=== PATIENT | female | born 1965 | race Two or more races ===

== ENCOUNTER → 2019-03-02 | Outpatient (CLI) | payer MEDICARE, MEDICAID ==
--- NOTE | 2019-03-02 08:37 | WOMENS IMAGING REPORT ---
EXAM DESCRIPTION: U/S ABDOMEN TOTAL COMPLETED DATE/TIME: 03/02/2019 8:10 am REASON FOR STUDY: R10.11 RIGHT UPPER QUADRANT PAIN R10.11 RIGHT UPPER QUADRANT PAIN COMPARISON: None. TECHNIQUE: Dynamic and static grayscale images acquired of the abdomen and recorded on PACS. Additio nal selected color Doppler and spectral images recorded. Note: Study does not meet criteria for complete doppler/duplex scan LIMITATIONS: None. FINDINGS: PANCREAS: Pancreas is obscured by overlying bowel gas. LIVER: The liver is echogenic consistent with fatty infiltration. No masses. LIVER VASCULATURE: Normal directional flow of the main portal vein and hepatic veins. GALLBLADDER: There is gallbladder sludge. No wall thickening or pericholecystic edema. ULTRASOUND-DETECTED MEIER'S SIGN: Negative. INTRAHEPATIC DUCTS AND COMMON DUCT: CBD and intrahepatic ducts normal caliber. No filling defects. INFERIOR VENA CAVA: Patent. AORTA: Obscured by overlying bowel gas. RIGHT KIDNEY: Normal size. Normal echogenicity. No solid or suspicious masses. No hydronephros is. No calcifications. LEFT KIDNEY: Normal size. Normal echogenicity. No solid or suspicious masses. No hydronephrosi s. No calcifications. SPLEEN: Normal size. No solid masses. PERITONEAL AND PLEURAL SPACES: No ascites or effusions. OTHER: No other significant finding. IMPRESSION: Limited study due to overlying bowel gas. Fatty infiltration of the liver. TECHNICAL DOCUMENTATION: JOB ID: [id number]- All Rights Reserved Reading location - IP/workstation name: [email or web address]
== END ==
LOC: WI 07:25
PROVIDERS: ATTEND Physician Assistant
DX: K76.0 Fatty (change of) liver, not elsewhere classified (principal); R10.11 Right upper quadrant pain
CPT/HCPCS: 76700

== ENCOUNTER 2019-03-08 15:21 | Emergency (ER) | payer MEDICARE, MEDICAID ==
[2019-03-08] MEDS ORDERED: DICYCLOMINE HCL 20 MG TABLET PO ONE (15:40)
--- NOTE | 2019-03-08 15:40 | ER Document Report ---
ED Medical Screen (RME) - General Chief Complaint: Abdominal Pain Stated Complaint: ABDOMINAL PAIN Time Seen by Provider: 03/08/19 15:32 Primary Care Provider: SOWMYA IRWIN PA-C [Primary Care Provider] - Follow up as needed Mode of Arrival: Ambulatory Information source: Patient Notes: This 52-year-old diabetic presents to the emergency department with right upper quad abdominal pain. Reports she had an ultrasound a week ago and they told her something about her gallbladder. She reports here today with increased pain. Reports she has been hurting all week. Review of last week's ultrasound report shows sludge in the fatty liver. Patient also reports that she has gained like 15 pounds even though she is working out. I have greeted and performed a rapid initial assessment of this patient. A comprehensive ED assessment and evaluation of the patient, analysis of test results and completion of the medical decision making process will be conducted by additional ED providers. Dictation of this chart was performed using voice recognition software; therefore, there may be some unintended grammatical errors. TRAVEL OUTSIDE OF THE [place] IN LAST 30 DAYS: No - Related Data Allergies/Adverse Reactions: Penicillins Allergy (Verified 03/08/19 15:32) Physical Exam - Vital signs Vitals: Temp Pulse Resp BP Pulse Ox 98.0 F 93 16 153/86 H 96 03/08/19 15:25 03/08/19 15:25 03/08/19 15:25 03/08/19 15:25 03/08/19 15:25 Course - Vital Signs Vital signs: Temp Pulse Resp BP Pulse Ox 98.0 F 93 16 153/86 H 96 03/08/19 15:25 03/08/19 15:25 03/08/19 15:25 03/08/19 15:25 03/08/19 15:25 Doctor's Discharge - Discharge Referrals: SOWMYA IRWIN PA-C [Primary Care Provider] - Follow up as needed
[2019-03-08 16:15] LABS: ABSOLUTE EOSINOPHILS # (AUTO) 0.5 10^3/uL (0.0-0.6); ABSOLUTE LYMPHOCYTES (AUTO) 1.8 10^3/uL (0.5-4.7); ABSOLUTE MONOCYTES (AUTO) 0.4 10^3/uL (0.1-1.4); ABSOLUTE NEUT (AUTO) 5.2 10^3/uL (1.7-8.2); BASOPHILS % (AUTO) 0.3 % (0-2); EOSINOPHILS % (AUTO) 5.8 % (0-6); HEMATOCRIT 40.9 % (36.0-47.0); HEMOGLOBIN 14.2 g/dL (12.0-15.5); LYMPHOCYTES % (AUTO) 22.6 % (13-45); MEAN CORPUSCULAR HEMOGLOBIN 30.6 pg (27.0-33.4); MEAN CORPUSCULAR HGB CONC 34.6 g/dL (32.0-36.0); MEAN CORPUSCULAR VOLUME 89 fl (80-97); MONOCYTES % (AUTO) 5.6 % (3-13); PLATELET COUNT 266 10^3/uL (150-450); RED BLOOD COUNT 4.62 10^6/uL (3.72-5.28); RED CELL DISTRIBUTION WIDTH 12.6 % (11.5-14.0); SEGMENTED NEUTROPHILS % (AUTO) 65.7 % (42-78); TOTAL CELLS COUNTED % (AUTO) 100 %; WHITE BLOOD COUNT 7.9 10^3/uL (4.0-10.5)
[2019-03-08 16:30] LABS: APPEARANCE,URINE CLEAR; BILIRUBIN,URINE NEGATIVE (NEGATIVE); COLOR,URINE YELLOW; GLUCOSE, URINE >=500 mg/dL (NEGATIVE); KETONES,URINE NEGATIVE (NEGATIVE); LEUKOCYTE ESTERASE,URINE NEGATIVE (NEGATIVE); NITRITE,URINE NEGATIVE (NEGATIVE); PROTEIN,URINE NEGATIVE (NEGATIVE); URINE SPECIFIC GRAVITY 1.024; UROBILINOGEN,URINE NEGATIVE mg/dL (<2.0)
[2019-03-08 16:33] LABS: ALBUMIN 3.9 g/dL (3.5-5.0); ALKALINE PHOSPHATASE 103 U/L (38-126); ANION GAP 9 (5-19); ASPARTATE AMINO TRANSFERASE 21 U/L (14-36); BILIRUBIN,DIRECT 0.1 mg/dL (0.0-0.4); BILIRUBIN,TOTAL 0.3 mg/dL (0.2-1.3); BLOOD UREA NITROGEN 13 mg/dL (7-20); CALCIUM 9.1 mg/dL (8.4-10.2); CARBON DIOXIDE 27 mmol/L (22-30); CHLORIDE 104 mmol/L (98-107); GLUCOSE 285 mg/dL (75-110); POTASSIUM 4.5 mmol/L (3.6-5.0)
--- NOTE | 2019-03-08 18:02 | RADIOLOGY REPORT (SQ) ---
EXAM DESCRIPTION: U/S ABDOMEN LIMITED W/O DOP COMPLETED DATE/TIME: 03/08/2019 5:47 pm REASON FOR STUDY: RUQ abd pain worsening COMPARISON: 03/02/2019 TECHNIQUE: Dynamic and static grayscale images acquired of the abdomen and recorded on PACS. Additio nal selected color Doppler and spectral images recorded. LIMITATIONS: Bowel gas. FINDINGS: PANCREAS: Obscured by bowel gas. LIVER: No masses. Echotexture increased consistent with fatty infiltration. LIVER VASCULATURE: Normal directional flow of the main portal vein and hepatic veins. GALLBLADDER: No shadowing gallstones. Small amount of sludge. Normal wall thickness. Trace pericho lecystic fluid. ULTRASOUND-DETECTED BUTLER'S SIGN: Reported positive. INTRAHEPATIC DUCTS AND COMMON DUCT: CBD and intrahepatic ducts normal caliber. No filling defects. INFERIOR VENA CAVA: Normal flow. AORTA: No aneurysm identified. RIGHT KIDNEY: Normal size. Normal echogenicity. No solid or suspicious masses. No hydronephros is. No calcifications. PERITONEAL AND RIGHT PLEURAL SPACE: No ascites or effusions. OTHER: No other significant findings. IMPRESSION: No shadowing gallstones. Reported positive sonographic Butler sign. Small amount of sl udge. Trace pericholecystic fluid. COMMENT: Consider surgical consultation. TECHNICAL DOCUMENTATION: JOB ID: [id number] [employer]- All Rights Reserved Reading location - IP/workstation name: [email or web address]
--- NOTE | 2019-03-08 18:11 | ER Document Report ---
ED General - General Chief Complaint: Abdominal Pain Stated Complaint: ABDOMINAL PAIN Time Seen by Provider: 03/08/19 15:32 Primary Care Provider: SOWMYA IRWIN PA-C [Primary Care Provider] - Follow up as needed JOHN BONE MD [ACTIVE STAFF] - Follow up tomorrow (call for appointment. ) Mode of Arrival: Ambulatory Notes: Patient is a 53-year-old female that presents to the emergency department for chief complaint of right upper quadrant abdominal pain. Patient states she is been having this for some time now, and building up for the past 2 months, she wants her primary care had an ultrasound, and followed up on the results, but her symptoms are worsening, they thought she needed to see a surgeon for her gallbladder. She denies any any fevers, chills or night sweats, but has had some nausea associated with the right upper quadrant abdominal pain. She denies any associated diarrhea with it. The pain seems to be worse particularly after eating meals. She describes the pain as a sharp pain and rates it as a 6 or 7 out of 10 at its worst, currently a 2 out of 10. Past Medical History: Diabetes mellitus, hypertension Past Surgical History: Hysterectomy, hernia repair Social History: Denies tobacco, alcohol or drug use. Family History: Reviewed and noncontributory for presenting illness Allergies: Reviewed, see documented allergy list. REVIEW OF SYSTEMS: Other than noted above, the 12 point review of systems was reviewed with the patient and were negative, all pertinent findings are included in the HPI. PHYSICAL EXAMINATION: Vital signs reviewed, nursing noted reviewed. GENERAL: Well-appearing, well-nourished and in no acute distress. HEAD: Atraumatic, normocephalic. EYES: Eyes appear normal, extraocular movements intact, sclera anicteric, conjunctiva are normal. ENT: nares patent, oropharynx clear without exudates. Moist mucous membranes. NECK: Normal range of motion, supple without lymphadenopathy LUNGS: Breath sounds clear to auscultation bilaterally and equal. No wheezes rales or rhonchi. HEART: Regular rate and rhythm without murmurs ABDOMEN: Soft, mild right upper quadrant and epigastric abdominal pain, with equivocal Butler sign on my exam, normoactive bowel sounds. No rebound, guarding, or rigidity. No masses appreciated. EXTREMITIES: Nontender, good range of motion, no pitting or edema. NEUROLOGICAL: No focal neurological deficits. Moves all extremities spontaneously Motor and sensory grossly intact on exam. PSYCH: Normal mood, normal affect. SKIN: Warm, Dry, normal turgor, no rashes or lesions noted on exposed skin TRAVEL OUTSIDE OF THE [place] IN LAST 30 DAYS: No - Related Data Allergies/Adverse Reactions: Penicillins Allergy (Verified 03/08/19 15:32) Past Medical History - General Information source: Patient - Social History Smoking Status: Never Smoker Chew tobacco use (# tins/day): No Frequency of alcohol use: Occasional Drug Abuse: None Family History: Reviewed & Not Pertinent Patient has suicidal ideation: No Patient has homicidal ideation: No Endocrine Medical History: Reports: Hx Diabetes Mellitus Type 2 Past Surgical History: Reports: Hx Hysterectomy Physical Exam - Vital signs Vitals: Temp Pulse Resp BP Pulse Ox 98.0 F 93 16 153/86 H 96 03/08/19 15:25 03/08/19 15:25 03/08/19 15:25 03/08/19 15:25 03/08/19 15:25 Course - Re-evaluation Re-evalutation: Patient seen and examined vital signs reviewed. Laboratory data and/or imaging were ordered as appropriate for the patient's presenting symptoms and complaint, with consideration of any critical or life threatening conditions that may be associated with their obtained history and exam as noted above. Results were reviewed when available and demonstrated gallbladder sludge, without other gross evidence of acute cholecystitis, normal blood work, no leukocytosis, LFTs normal as well. The patient was re-evaluated and was stable, pain seem to be controlled and tolerable Evaluation was most consistent with biliary colic and right upper quadrant abdominal pain, patient referred to surgeon, given pain medication take if needed at home anticipatory guidance and reasons to return to the emergency department. Results were discussed with the patient at this point, after careful consideration I feel that that patient can be discharged from the emergency department, the patient was educated treatments and reasons to return to the emergency department based on their presumed diagnosis as noted above, they were advised to followup with a primary care physician in 2-3 days. Patient was agreeable to plan of care. *Note is created using voice recognition software and may contain spelling, syntax or grammatical errors. Laboratory 03/08/19 03/08/19 03/08/19 15:50 15:50 15:50 WBC 7.9 RBC 4.62 Hgb 14.2 Hct 40.9 MCV 89 MCH 30.6 MCHC 34.6 RDW 12.6 Plt Count 266 Lymph % (Auto) 22.6 Gila % (Auto) 5.6 Eos % (Auto) 5.8 Baso % (Auto) 0.3 Absolute Neuts (auto) 5.2 Absolute Lymphs (auto) 1.8 Absolute Monos (auto) 0.4 Absolute Eos (auto) 0.5 Absolute Basos (auto) 0.0 Seg Neutrophils % 65.7 Sodium 139.6 Potassium 4.5 Chloride 104 Carbon Dioxide 27 Anion Gap 9 BUN 13 Creatinine 0.63 Est GFR ( Amer) > 60 Est GFR (MDRD) Non-Af > 60 Glucose 285 H Calcium 9.1 Total Bilirubin 0.3 Direct Bilirubin 0.1 Neonat Total Bilirubin Not Reportable Neonat Direct Bilirubin Not Reportable Neonat Indirect Bili Not Reportable AST 21 ALT 21 Alkaline Phosphatase 103 Total Protein 7.0 Albumin 3.9 Lipase 135.9 Urine Color YELLOW Urine Appearance CLEAR Urine pH 6.0 Ur Specific [place] 1.024 Urine Protein NEGATIVE Urine Glucose (UA) >=500 H Urine Ketones NEGATIVE Urine Blood MODERATE H Urine Nitrite NEGATIVE Urine Bilirubin NEGATIVE Urine Urobilinogen NEGATIVE Ur Leukocyte Esterase NEGATIVE Urine WBC (Auto) 2 Urine RBC (Auto) 5 Squamous Epi Cells Auto 2 Urine Mucus (Auto) RARE Urine Ascorbic Acid NEGATIVE Abdomen Ultrasound 03/08/19 15:34 IMPRESSION: No shadowing gallstones. Reported positive sonographic Butler sign. Small amount of sludge. Trace pericholecystic fluid. - Vital Signs Vital signs: Temp Pulse Resp BP Pulse Ox 98.0 F 66 20 128/62 H 99 03/08/19 18:37 03/08/19 18:37 03/08/19 18:37 03/08/19 18:37 03/08/19 18:37 - Laboratory Result Diagrams: 03/08/19 15:50 03/08/19 15:50 Laboratory results interpreted by me: 03/08/19 03/08/19 15:50 15:50 Glucose 285 H Urine Glucose (UA) >=500 H Urine Blood MODERATE H Discharge - Discharge Clinical Impression: RUQ abdominal pain Condition: Stable Disposition: HOME, SELF-CARE Instructions: Abdominal Pain ([facility]) Additional Instructions: Please take the pain medication only as needed, it may cause constipation, therefore you should take the MiraLAX to help move your bowels more, and please follow-up with surgery to discuss potential removal of your gallbladder. Prescriptions: Polyethylene Glycol 3350 [Miralax] 17 gm PO DAILY #238 gm Hydrocodone/Acetaminophen [[place] 5-325 mg Tablet] 1 tab PO Q8H PRN #15 tablet PRN Reason: abdominal pain Ondansetron [Zofran Odt 4 mg Tablet] 1 tab PO Q8H PRN #15 tab.rapdis PRN Reason: For Nausea/Vomiting Referrals: SOWMYA IRWIN PA-C [Primary Care Provider] - Follow up as needed JOHN BONE MD [ACTIVE STAFF] - Follow up tomorrow (call for appointment. )
[2019-03-08 18:40] VITALS: BP 128/62
== END 2019-03-08 18:40 | disposition home or self-care (01) ==
LOC: ER 15:21
DX: R10.11 Right upper quadrant pain (principal); E11.9 Type 2 diabetes mellitus without complications; I10 Essential (primary) hypertension; Z90.710 Acquired absence of both cervix and uterus; Z88.0 Allergy status to penicillin
CPT/HCPCS: 99284; 36415; 83690; 85025; 80053; 81001; 76705; A9270; J3490

== ENCOUNTER → 2019-03-10 | Outpatient (CLI) | payer MEDICARE, MEDICAID ==
[2019-03-10 12:01] LABS: ALBUMIN 4.2 g/dL (3.5-5.0); ALKALINE PHOSPHATASE 89 U/L (38-126); ASPARTATE AMINO TRANSFERASE 22 U/L (14-36); BILIRUBIN,DIRECT 0.1 mg/dL (0.0-0.4); BILIRUBIN,TOTAL 0.4 mg/dL (0.2-1.3); TOTAL PROTEIN 7.1 g/dL (6.3-8.2)
== END ==
LOC: OD 10:24
PROVIDERS: ATTEND Surgery
DX: Z01.818 Encounter for other preprocedural examination (principal); K81.9 Cholecystitis, unspecified; E11.9 Type 2 diabetes mellitus without complications; J45.909 Unspecified asthma, uncomplicated; I10 Essential (primary) hypertension; M19.90 Unspecified osteoarthritis, unspecified site; Z86.010 Personal history of colon polyps; Z78.9 Other specified health status
CPT/HCPCS: 36415; 80076

== ENCOUNTER 2019-03-11 12:30 | Day surgery (SDC) | payer MEDICARE, MEDICAID ==
[~2019-03-11 12:30] MED LIST: ACETAMINOPHEN 325 MG TABLET PO PRN; IBUPROFEN 800 MG in NORMAL SALINE 250 ML IV PRN; ROCURONIUM BROMIDE INJ 50 MG/5 ML VIAL IV ONE; SUCCINYLCHOLINE CHLORIDE INJ 200 MG/10 ML VIAL ONE; VANCOMYCIN HCL 1,000 MG in DEXTROSE 5%-WATER 250 ML IV PRN
[2019-03-11] MEDS ORDERED: ALBUTEROL SULFATE 0.083% NEB 2.5 MG/3 ML AMPUL NEB ONE (13:30)
[2019-03-11] MEDS ORDERED: ACETAMINOPHEN 325 MG TABLET ONE (13:30)
[2019-03-11] MEDS ORDERED: METOCLOPRAMIDE HCL INJ/PF 10 MG/2 ML SDV ONE (14:21)
[2019-03-11] MEDS ORDERED: FAMOTIDINE INJ/PF 20 MG/2 ML SDV IV ONE (14:21)
[2019-03-11] MEDS ORDERED: PROPOFOL INJ 200 MG/20 ML VIAL IV ONE (16:18)
[2019-03-11] MEDS ORDERED: SUGAMMADEX SODIUM 200 MG/2 ML SDV IV ONE (16:18)
[2019-03-11] MEDS ORDERED: ONDANSETRON HCL INJ/PF 4 MG/2 ML SDV ONE (16:18)
[2019-03-11] MEDS ORDERED: MIDAZOLAM 2 MG/2 ML INJ ONE (16:18)
[2019-03-11] MEDS ORDERED: DEXAMETHASONE SOD PHOSPHATE INJ 4 MG/1 ML VIAL ONE (16:18)
[2019-03-11] MEDS ORDERED: FENTANYL CITRATE INJ/PF 100 MCG/2 ML AMPUL ONE (16:18)
[2019-03-11] MEDS ORDERED: BUPIVACAINE HCL 0.25 % INJ/PF (2.5 MG/1 ML) 30 ML VIAL ONE (16:30)
[2019-03-11] MEDS ORDERED: DIPHENHYDRAMINE HCL 50 MG/ML VIAL IV PRN (17:19)
[2019-03-11] MEDS ORDERED: MORPHINE SULFATE 10 MG/ML INJ IV PRN (17:19)
[2019-03-11] MEDS ORDERED: PROMETHAZINE HCL INJ 25 MG/1 ML VIAL IV PRN ×2 (17:19)
[2019-03-11] MEDS ORDERED: FENTANYL CITRATE INJ/PF 100 MCG/2 ML AMPUL IV PRN ×3 (17:19)
[2019-03-11] MEDS ORDERED: MEPERIDINE HCL/PF INJ 25 MG/1 ML DISP.SYRIN IV PRN (17:19)
--- NOTE | 2019-03-11 18:02 | EKG REPORT ---
SEVERITY:- ABNORMAL ECG - SINUS RHYTHM CONSIDER LEFT VENTRICULAR HYPERTROPHY : Confirmed by: Axel Sneed MD 11-Mar-2019 18:02:07
[2019-03-11] MEDS ORDERED: MEPERIDINE HCL/PF INJ 25 MG/1 ML DISP.SYRIN ONE (18:40)
[2019-03-11 21:35] VITALS: BP 140/75
--- NOTE | 2019-03-15 07:44 | Discharge Summary ---
Discharge Summary (SDC) - Discharge Final Diagnosis: Cholecystitis Date of Surgery: 03/11/19 Discharge Date: 03/11/19 Condition: Stable Forms: ASU Anesthesia D/C Instruction, Discharge POC-Surgical Service Treatment or Instructions: NO DRIVING. NO ALCOHOL. NO LEGAL DECISIONS OR ACTIVITIES THAT REQUIRE YOUR FULL ATTENTION FOR 24 HOURS. NO TUB BATHS OR SUBMERGING INTO WATER FOR 2 WEEKS. MAY START SHOWERS ON THURSDAY. STERISTRIPS WILL FALL OFF ON THEIR OWN. NO LIFTING MORE THAN 10 POUNDS FOR 2 WEEKS. GO TO THE EMERGENCY ROOM FOR DIFFICULTY BREATHING, CHEST PAIN, DARK TARRY STOOLS, SEVERE ABDOMINAL PAIN THAT WON'T STOP, IF YOU HAVE DIFFICULTY URINATING OR HAVE NOT URINATED WITHIN 6-8 HOURS AFTER DISCHARGE. MAY USE A STOOL SOFTENER OF YOUR CHOICE. KEEP YOUR FOLLOW-UP APPOINTMENT. REVIEW YOUR DISCHARGE PAPERWORK. Referrals: JOHN BONE MD [ACTIVE STAFF] - 03/23/19 8:45 am Discharge Diet: As Tolerated Respiratory Treatments at Home: Deep Breathing/Coughing, Incentive Spirometer Discharge Activity: No Lifting Over 10 Pounds, No Lifting/Push/Pulling Home Care Assistance: None Needed Report the Following to Your Physician Immediately: Shortness of Breath, Nausea, Vomiting, Increase in Pain, Yellow Skin, Fever over 101 Degrees, Unusual Bleeding, Redness
--- NOTE | 2019-03-15 07:50 | Operative Report ---
Nonrecallable Operative Report DATE OF SURGERY: 03/11/19 PREOPERATIVE DIAGNOSIS: Cholecystitis POSTOPERATIVE DIAGNOSIS: Cholecystitis OPERATION: Laparoscopic cholecystectomy SURGEON: JOHN BONE ANESTHESIA: GA TISSUE REMOVED OR ALTERED: Gallbladder COMPLICATIONS: None apparent ESTIMATED BLOOD LOSS: Minimal PROCEDURE: Drains/implants: None. Procedure in detail: After informed consent was obtained, the patient was brought into the operating room and laid in the supine position. The area of the abdomen was prepped and draped in a normal sterile fashion. The patient had a history of a previous umbilical hernia mesh. Secondary to this, a right upper quadrant incision was created 3 fingerbreadths below the right costal margin. The abdomen was then accessed using a 5 mm trocar and 5 mm camera, through the use of the Optiview technique. Once the trocar and camera were inserted in the abdomen, gas insufflation was attached, and pneumoperitoneum was achieved. The abdomen was then quickly surveyed. A small umbilical hernia mesh was present, and appeared to be well incorporated. A supraumbilical incision was then created several centimeters superior to the umbilical hernia mesh. This was done with a 15 blade scalpel. A 12 mm trocar was then placed into the abdominal cavity, again several centimeters superior to the umbilical hernia mesh. A subxiphoid 5 mm port, and a right lateral 5 mm port were then placed under direct laparoscopic visualization. The gallbladder was easily identified. It was tense and distended, with evidence of inflammation surrounding it. Omental adhesions were taken down. The gallbladder was retracted cephalad and laterally. Dissection was begun in the triangle of Calot. The cystic duct and cystic artery were fully visualized and skeletonized, seeing the liver through the triangle. This was somewhat difficult, owing to the chronic appearing cholecystitis that was present. Once the critical view of safety was obtained, the cystic duct and cystic artery were clipped and cut with laparoscopic instruments. The gallbladder was removed from the liver using Bovie electrocautery. The gallbladder was placed into an Endo Catch bag and pulled out to the umbilicus. The camera was reinserted. The hilum was inspected. It was found to be free of any leakage of blood or bile. Once this was confirmed, the 5 mm trochars were removed. The supraumbilical trocar was also removed, and pneumoperitoneum was relieved. The supraumbilical fascia was closed using 0 Vicryl suture in [id number] fashion. The overlying skin was closed using 4-0 Vicryl Rapide suture in subcuticular fashion. All sponge, instrument, and needle counts were correct x2. Condition: Stable.
== END 2019-03-11 19:56 | disposition home or self-care (01) ==
LOC: OROUT 12:30
PROVIDERS: ATTEND Surgery
DX: K81.1 Chronic cholecystitis (principal); E11.9 Type 2 diabetes mellitus without complications; J45.909 Unspecified asthma, uncomplicated; I10 Essential (primary) hypertension; Z79.84 Long term (current) use of oral hypoglycemic drugs; Z79.82 Long term (current) use of aspirin; Z79.4 Long term (current) use of insulin
CPT/HCPCS: 86900; 86901; 36415; 86850; 82962; 88304 ×2; 93005; 93010; 00790; 47562; A9270 ×2; J2250; J3490 ×2; J1100; J3010; J2175; J2765; J0330; J2405; J7060; J7050; J2704; J3370; S0028; J1741; 790

== ENCOUNTER → 2019-03-15 | Outpatient (CLI) | payer MEDICARE, MEDICAID ==
--- NOTE | 2019-03-15 12:26 | RADIOLOGY REPORT (SQ) ---
EXAM DESCRIPTION: KUB COMPLETED DATE/TIME: 03/15/2019 11:54 am REASON FOR STUDY: GENERALIZED ABD. PAIN R10.84 GENERALIZED ABDOMINAL PAIN COMPARISON: None. NUMBER OF VIEWS: One view. TECHNIQUE: Supine radiographic image of the abdomen acquired. LIMITATIONS: None. FINDINGS: BOWEL GAS PATTERN: Normal bowel gas pattern. No dilated loops. Moderate to moderate sever e colonic and rectal fecal burden. CALCIFICATIONS: No suspicious calcifications. SOFT TISSUES: No gross mass or suggestion of organomegaly. HARDWARE: Status post gallbladder removal 03/11/2019. BONES: No acute fracture. No worrisome bone lesions. OTHER: No other significant finding. IMPRESSION: 1. NO RADIOGRAPHIC EVIDENCE FOR ACUTE ABDOMINAL DISEASE. Moderate to moderate severe co lonic and rectal fecal burden. TECHNICAL DOCUMENTATION: JOB ID: [id number] [employer]- All Rights Reserved Reading location - IP/workstation name: [email or web address]
== END ==
LOC: OD 11:28
PROVIDERS: ATTEND Physician Assistant
DX: R10.84 Generalized abdominal pain (principal)
CPT/HCPCS: 74018